=== PATIENT | male | born 1980 | race Caucasian/White ===

== ENCOUNTER → 2017-05-25 10:20 | Outpatient (CLI) | payer MEDICAID, SELFPAY ==
[2017-05-25 10:25] LABS: Bacteria 0 SEEN /hpf (None Seen); Mucous, Urine 0 SEEN /hpf (<or=2+); Red Blood Cells-Urine 0 SEEN /hpf (0-5); White Blood Cells 0 SEEN /hpf (0-5)
[2017-05-25 12:12] LABS: Color, Urine Yellow (Yellow); Glucose, Dipstick Normal (Normal); Ketone-Dipstick Negative (Negative); Leukocyte Esterase-Dipstick Negative /ul (Negative); Nitrite-Dipstick Negative (Negative); Occult Blood-Urine Negative /ul (Negative); Protein-Dipstick Negative (Negative); Urine Bilirubin Dipstick Negative (Negative); Urine Clarity Sl. Cloudy (Clear); Urine Urobilinogen Normal (Normal)
[2017-05-25 12:22] LABS: Squamous Epithelial Cells - UA 0-5 SEEN /hpf (0-5)
[2017-05-25 12:58] LABS: Absolute Neutrophil Count 3.4 X10^3/uL (2.0-7.7); Basophil# 0.03 X10^3/uL; Basophil% 0.4 % (0-1); Eosinophil# 0.14 X10^3/uL; Eosinophils% 2.1 % (0-5); Hematocrit 47.4 % (40-54); Hemoglobin 15.6 g/dl (13.0-16.5); Lymphocyte % 40.3 % (19-41); Mean Corp Hgb Conc 32.9 g/gl (32-36); Mean Corpuscular Hgb 30.6 pg (27.0-32.0); Mean Corpuscular Volume 93.1 fL (80-94); Mean Platelet Vol. 10.5 fl (6.2-12.0); Monocyte# 0.39 X10^3/uL; Monocyte% 5.8 % (0-10); Neutrophil # 3.42 X10^3/uL (2.7-7.7); Neutrophil % 51.1 % (47-70); Platelet Count 264 K/mm3 (150-450); RBC Distribution Width CV 13.7 % (11.6-14.6); RBC Distribution Width SD 46.5 fl (35.1-43.9); Red Blood Count 5.09 M/mm3 (4.6-6.2); White Blood Count 6.7 K/mm3 (4.4-11.0)
[2017-05-25 13:02] LABS: POSITIVE COUNT NO; POSITIVE DIFFERENTIAL NO; POSITIVE MORPHOLOGY NO
[2017-05-25 13:05] LABS: ALB/GLOB Ratio 1.1 RATIO (0.9-2.4); AST(SGOT) 25 U/L (15-37); Alanine Aminotransfer ALT/SGPT 85 U/L (16-61); Albumin, Serum 3.8 g/dL (3.2-5.0); Alkaline Phosphatase 79 U/L (45-117); Anion Gap 7 (5-15); BUN 18 mg/dL (7-18); BUN/Creat Ratio 17.5 RATIO (10-20); Calcium,Total 8.5 mg/dL (8.5-10.1); Chloride 108 mmol/L (98-107); Cholesterol 163 mg/dL (200); Creatinine, Serum 1.03 mg/dL (0.70-1.30); EST Glomerular Filtration Rate 86 mL/min (>60); Est Glom Filt Rate - Afr Amer 104 mL/min (>60); Globulin 3.6 g/dL (2.2-4.2); Glucose 108 mg/dL (74-106); High Density Lipoprotein 54 mg/dL; Protein, Total 7.4 g/dL (6.4-8.2); Sodium Level 139 mmol/L (136-145); Thyroid Stim Hormone (TSH) 1.45 uIU/mL (0.358-3.74); Triglycerides 78 mg/dL; Very Low Density Lipoprotein 16 mg/dL (5-40)
== END ==
PROVIDERS: Family Provider Family Medicine; PCP Family Medicine; Visit Provider Family Medicine
DX: Z00.00 Encounter for general adult medical examination without abnormal findings (principal); E66.9 Obesity, unspecified
CPT/HCPCS: 36415; 80053; 80061; 81001; 84443; 85025

== ENCOUNTER → 2017-06-01 09:52 | Outpatient (CLI) | payer MEDICAID, SELFPAY ==
[2017-06-01 12:42] LABS: ALB/GLOB Ratio 0.9 RATIO (0.9-2.4); AST(SGOT) 26 U/L (15-37); Alanine Aminotransfer ALT/SGPT 92 U/L (16-61); Albumin, Serum 3.7 g/dL (3.2-5.0); Alkaline Phosphatase 77 U/L (45-117); Anion Gap 7 (5-15); BUN 14 mg/dL (7-18); BUN/Creat Ratio 15.3 RATIO (10-20); Bilirubin, Direct 0.17 mg/dL (0.00-0.30); Calcium,Total 8.8 mg/dL (8.5-10.1); Chloride 106 mmol/L (98-107); Creatinine, Serum 0.92 mg/dL (0.70-1.30); EST Glomerular Filtration Rate 98 mL/min (>60); Est Glom Filt Rate - Afr Amer 119 mL/min (>60); Glucose 77 mg/dL (74-106); Potassium 3.6 mmol/L (3.5-5.1); Protein, Total 7.7 g/dL (6.4-8.2); Sodium Level 140 mmol/L (136-145)
[2017-06-02 08:36] LABS: HEPATITIS B SURFACE AG Negative (Negative); Hep B Surface Antibodies Non Reactive (.); Hep C Antibodies 0.1 s/co ratio (0.0-0.9)
== END ==
PROVIDERS: Family Provider Family Medicine; PCP Family Medicine; Visit Provider Family Medicine
DX: R74.8 Abnormal levels of other serum enzymes (principal)
CPT/HCPCS: 36415; 80053; 82248; 86706; 86803; 87340

== ENCOUNTER → 2017-08-10 15:26 | Outpatient (CLI) | payer MEDICAID, SELFPAY ==
[2017-08-10 17:50] LABS: AST(SGOT) 35 U/L (15-37); Alanine Aminotransfer ALT/SGPT 110 U/L (16-61); Albumin, Serum 3.8 g/dL (3.2-5.0); Alkaline Phosphatase 90 U/L (45-117); Bilirubin, Direct 0.15 mg/dL (0.00-0.30); Globulin 4.4 g/dL (2.2-4.2); Protein, Total 8.2 g/dL (6.4-8.2)
== END ==
PROVIDERS: Family Provider Family Medicine; PCP Family Medicine; Visit Provider Family Medicine
DX: R74.8 Abnormal levels of other serum enzymes (principal)
CPT/HCPCS: 36415; 80076

== ENCOUNTER → 2017-11-13 16:19 | Outpatient (CLI) | payer MEDICAID, SELFPAY ==
[2017-11-13 18:10] LABS: AST(SGOT) 38 U/L (15-37); Alanine Aminotransfer ALT/SGPT 95 U/L (16-61); Albumin, Serum 3.7 g/dL (3.2-5.0); Alkaline Phosphatase 84 U/L (45-117); Bilirubin, Direct 0.21 mg/dL (0.00-0.30); Globulin 4.2 g/dL (2.2-4.2); Protein, Total 7.9 g/dL (6.4-8.2)
== END ==
PROVIDERS: Family Provider Family Medicine; PCP Family Medicine; Visit Provider Family Medicine
DX: R74.8 Abnormal levels of other serum enzymes (principal)
CPT/HCPCS: 36415; 80076

== ENCOUNTER → 2018-03-19 15:32 | Outpatient (CLI) | payer MEDICAID, SELFPAY ==
[2018-03-19 18:12] LABS: AST(SGOT) 37 U/L (15-37); Alanine Aminotransfer ALT/SGPT 105 U/L (16-61); Albumin, Serum 3.8 g/dL (3.2-5.0); Alkaline Phosphatase 84 U/L (45-117); Anion Gap 10 (5-15); BUN 12 mg/dL (7-18); BUN/Creat Ratio 11.4 RATIO (10-20); Calcium,Total 9.1 mg/dL (8.5-10.1); Chloride 105 mmol/L (98-107); Creatinine, Serum 1.05 mg/dL (0.70-1.30); EST Glomerular Filtration Rate 83 mL/min (>60); Est Glom Filt Rate - Afr Amer 101 mL/min (>60); Globulin 3.8 g/dL (2.2-4.2); Glucose 75 mg/dL (74-106); Potassium 3.9 mmol/L (3.5-5.1); Protein, Total 7.6 g/dL (6.4-8.2); Sodium Level 140 mmol/L (136-145)
== END ==
PROVIDERS: Family Provider Family Medicine; PCP Family Medicine; Visit Provider Family Medicine
DX: R74.8 Abnormal levels of other serum enzymes (principal)
CPT/HCPCS: 36415; 80053

== ENCOUNTER → 2018-03-28 09:44 | Outpatient (CLI) | payer MEDICAID, SELFPAY ==
--- NOTE | 2018-03-28 09:51 | US_ITS ---
STUDY: ABDOMINAL ULTRASOUND - RIGHT UPPER QUADRANT REASON FOR VISIT: Male, 37 years old. Elevated liver function tests TECHNIQUE: Ultrasound evaluation of the right upper quadrant was performed with real-time and static junior-scale imaging. TECHNICAL QUALITY: Adequate. COMPARISON: None. FINDINGS: Liver: The liver measures 18.1 cm. Fatty infiltration of the liver. The bile ducts are within normal limits. There is hepatic color flow. The direction of portal flow is hepatopetal. There is no demonstrated mass lesion. Gallbladder: Normal distended gallbladder. The gallbladder wall measures 4 mm. There is a negative sonographic Torres's sign. There is no pericholecystic fluid. There is sludge within the gallbladder lumen and a large 2.1 cm gallstone. Common Bile Duct (C.B.D.): The common bile duct measures mm. Pancreas: Normal size of the head, body and tail of the pancreas. There is normal echogenicity of the pancreas. There is no demonstrated pancreatic mass or cyst. Right Kidney: Normal size of the right kidney. The right kidney measures 12.3 x 5.7 x 6.2 cm. Normal renal cortex. The right cortex measures 2.3 cm. There is no demonstrated renal mass or cyst. There is no right hydronephrosis. US/Liver IMPRESSION: A large 2.1 cm gallstone and evidence of sludge within the gallbladder lumen. Fatty infiltration of the liver Electronically Signed: Venu Jesus MD at 2:53 EST Tel , Service support ,
--- OUTSIDE RECORDS SUMMARY | 2018-06-01 23:31 | XMS RPT_ITS ---
:1980 Author Organization [facility] Care Team Providers Name Role Phone DARCY VAUGHN JR Attending Unavailable SONIA FARR (RESPITE WORKER) Referring Unavailable SONIA FARR (RESPITE WORKER) Attending Unavailable Giovanni Mcarthur Attending Unavailable Giovanni Mcarthur Primary Care Unavailable Giovanni Mcarthur Attending Unavailable Giovanni Mcarthur Referring Unavailable Giovanni Mcarthur Primary Care Unavailable Giovanni Mcarthur Attending Unavailable Giovanni Mcarthur Primary Care Unavailable Giovanni Mcarthur Attending Unavailable Giovanni Mcarthur Primary Care Unavailable Giovanni Mcarthur Attending Unavailable Giovanni Mcarthur Primary Care Unavailable Giovanni Mcarthur Attending Unavailable Giovanni Mcarthur Primary Care Unavailable PROBLEMS PROBLEMS No Problem Records FoundPROCEDURES PROCEDURES No Procedure Records FoundRESULTS RESULTS LIVER Observed: 03/28/2018 Status: F Source: [place] 9:51 AM [facility] REPOSITORY [facility] Imaging Services [address] [place] [address] Liver MR#: [id number] Acct: [id number] Name: JORDAN JIMÉNEZ Rep #: [id number] : 1980 M 37 From: Venu Jesus MD PCP: Giovanni Mcarthur MD Status: REG CLI Study: Liver Date of Exam: 03/28/18 Exam# [id number] Ordering Dr: Giovanni Mcarthur MD STUDY: ABDOMINAL ULTRASOUND - RIGHT UPPER QUADRANT REASON FOR VISIT: Male, 37 years old. Elevated liver function tests TECHNIQUE: Ultrasound evaluation of the right upper quadrant was performed with real-time and static junior-scale imaging. TECHNICAL QUALITY: Adequate. COMPARISON: None. FINDINGS: Liver: The liver measures 18.1 cm. Fatty infiltration of the liver. The bile ducts are within normal limits. There is hepatic color flow. The direction of portal flow is hepatopetal. There is no demonstrated mass lesion. Gallbladder: Normal distended gallbladder. The gallbladder wall measures 4 mm. There is a negative sonographic Torres's sign. There is no pericholecystic fluid. There is sludge within the gallbladder lumen and a large 2.1 cm gallstone. Common Bile Duct (C.B.D.): The common bile duct measures mm. Pancreas: Normal size of the head, body and tail of the pancreas. There is normal echogenicity of the pancreas. There is no demonstrated pancreatic mass or cyst. Right Kidney: Normal size of the right kidney. The right kidney measures 12.3 x 5.7 x 6.2 cm. Normal renal cortex. The right cortex measures 2.3 cm. There is no demonstrated renal mass or cyst. There is no right hydronephrosis. US/Liver IMPRESSION: A large 2.1 cm gallstone and evidence of sludge within the gallbladder lumen. Fatty infiltration of the liver Electronically Signed: Venu Jesus MD at 2:53 EST Tel , Service support , CC: Giovanni Mcarthur MD Machine Bobbin Winder: Signed COMPREHENSIVE METABOLIC Collected: 03/19/2018 Status: F Source: [place] 3:33 PM [facility] REPOSITORY TYPE CODE TESTS RESULT OUT OF RANGE REFERENCE UNITS LAB L501.0100 74-106 mg/dL Normal GLU 75 Result Comment: Please note revised GLUCOSE reference range effective 2017. LAB L501.1000 7-18 mg/dL Normal BUN 12 LAB L501.1100 0.70-1.30 mg/dL Normal CREAT,SERUM 1.05 Result Comment: The validity of the calculated GFR AND GFRAA in patients over 70 years has not been determined. Clinical correlation is essential. LAB L501.1110 >60 mL/min Normal EST GFR 83 Result Comment: Non- GFR Calc LAB L501.1115 >60 mL/min Normal EST GFR - AA 101 Result Comment: GFR Calc LAB L501.1300 10-20 RATIO Normal BUN/CRE 11.4 LAB L501.1500 6.4-8.2 g/dL T Normal PROT 7.6 LAB L501.1800 3.2-5.0 g/dL Normal ALB 3.8 LAB L501.1950 2.2-4.2 g/dL Normal GLOB 3.8 LAB L501.2000 0.9-2.4 RATIO Normal A/G 1.0 LAB L501.2200 8.5-10.1 mg/dL CA Normal 9.1 LAB L501.4100 15-37 U/L Normal AST 37 LAB L501.4305 45-117 U/L Normal ALK P 84 LAB L501.4405 16-61 U/L High ALT 105 LAB L501.4600 0.20-1.00 mg/dL T Normal BILI 0.90 LAB L501.5300 136-145 mmol/L NA Normal 140 LAB L501.5600 3.5-5.1 mmol/L K Normal 3.9 LAB L501.5900 98-107 mmol/L CL Normal 105 LAB L501.6100 21.0-32.0 mmol/L Normal CO2 25.0 LAB L501.6200 5-15 Normal GAP 10 Performed By: #### L500.4050 #### [facility] [address] [place], [place], [id number] LIVER PROFILE Collected: 11/13/2017 Status: F Source: [place] 4:22 PM [facility] REPOSITORY TYPE CODE TESTS RESULT OUT OF RANGE REFERENCE UNITS LAB L501.1500 6.4-8.2 g/dL Normal T PROT 7.9 LAB L501.1800 3.2-5.0 g/dL Normal ALB 3.7 LAB L501.1950 2.2-4.2 g/dL Normal GLOB 4.2 LAB L501.4100 15-37 U/L High AST 38 LAB L501.4305 45-117 U/L Normal ALK P 84 LAB L501.4405 16-61 U/L High ALT 95 LAB L501.4600 0.20-1.00 mg/dL Normal T BILI 0.90 LAB L501.4700 0.00-0.30 mg/dL Normal D BILI 0.21 Performed By: #### L500.3400 #### [facility] [address] [place] [address], [id number] LIVER PROFILE Collected: 08/10/2017 Status: F Source: [place] 3:27 PM [facility] REPOSITORY Order Comment: Order Date: 08/10/17 Order Info: 0788-1 - LIVER TYPE CODE TESTS RESULT OUT OF RANGE REFERENCE UNITS LAB L501.1500 6.4-8.2 g/dL Normal T PROT 8.2 LAB L501.1800 3.2-5.0 g/dL Normal ALB 3.8 LAB L501.1950 2.2-4.2 g/dL High GLOB 4.4 LAB L501.4100 15-37 U/L Normal AST 35 LAB L501.4305 45-117 U/L Normal ALK P 90 LAB L501.4405 16-61 U/L High ALT 110 LAB L501.4600 0.20-1.00 mg/dL Normal T BILI 0.70 LAB L501.4700 0.00-0.30 mg/dL Normal D BILI 0.15 Performed By: #### L500.3400 #### [facility] [address] [place], [address] SURGICAL PATHOLOGY Observed: 07/31/2017 Status: F Source: [place] 10:27 AM [facility] REPOSITORY Specimen originated from [facility] Specimen #: [id number] Submitting Physician: DARCY VAUGHN FINAL DIAGNOSIS 1. Right vas deferens, segmental excision (A) - Complete cross section of unremarkable vas deferens. 2. Left vas deferens, segmental excision (B) - Complete cross section of unremarkable vas deferns. JUAN/josh 08/02/2017 Pascale Covarrubias M.D., Ph.D. (Electronic Signature) SPECIMEN SUBMITTED A: RIGHT VAS DEFERENS B: LEFT VAS DEFERENS CLINICAL DATA ENCOUNTER FOR STERILIZATION GROSS DESCRIPTION A. Received in formalin labeled as right vas deferens a segment of myles cylindrical tissue measuring 1.0 x 0.3 x 0.2 cm. A pinpoint lumen is grossly visualized. The entire specimen is submitted intact in cassette A1. B. Received in formalin labeled as left vas deferens a segment of pink cylindrical tissue measuring 1.2 x 0.3 x 0.3 cm. A lumen is grossly visualized. The entire specimen is submitted intact in cassette B1. NAOMI/enmanuel 07/31/2017 Gross examination performed at [facility], [address] [place] [id number] Date of Report: 08/02/2017 Date of Procedure: 07/31/2017 Date of Receipt: 07/31/2017 Submitted by: DARCY VAUGHN [facility] Diagnostic interpretation performed at [facility], [facility] [address]. PROCEDURE Observed: 07/31/2017 Status: COMPLETED Source: [place] 10:17 AM [facility] REPOSITORY HNO ID: [id number] Author: Darcy Vaughn Jr. Service: (none) Author Type: Physician Type: Procedures Filed: 07/31/2017 10:17 AM Note Text: VASECTOMY PROCEDURE NOTE: Jordan Jiménez is a 36 year old male who presents with sterilization for vasectomy Pt ID verified with patient: Yes Fire risk assessment done Procedure verified with patient: Yes Procedure confirmed with physician and arch support maker: Yes Sign In History and Physical Exam reviewed and is unchanged. . Informed Consent Discussed: Yes. Risks, benefits, alternatives and personnel discussed with patient who consents to proceed. Sign in Communication: Completed Time Out: Team Confirms the Correct Patient, Correct Procedure; Vasectomy, Correct Site and Site Marking, Correct Position (if applicable). Fire Safety Check List Reviewed: Yes Affirmation of Time Out: Yes Sign Out: Sign Out Discussion: Completed Physician: Darcy Vaughn Jr, MD Pre procedure dx: sterilization Post procedure dx: sterilization The benefits, risks, alternatives of the vasectomy procedure and personnel were discussed with the patient. The verbal consent was obtained and the patient agrees to proceed. Procedure: The patient was placed on the procedure table in the supine position and prepped and draped in the usual sterile fashion. 1% lidocaine was used to anesthetize both sides of the scrotum. No scalpel instrument was used to make small incisions. Vas deferens brought out of wound on either side with vas clamp. Section of each vas cut out. Electrocautery use to burn each cut end. Suture used to tie each cut end. Tissue interposition suture placed. Hemostasis achieved. Vas end placed back in the scrotum. Cleanly dressed. Patient was given standard post-procedure instructions. Assessment Sterilization Plan Specimen drop off 3 months Darcy Vaughn Jr, MD CNOV Observed: 07/31/2017 Status: COMPLETED Source: [place] 9:15 AM [facility] REPOSITORY Office Visit (UROLMD) JORDAN JIMÉNEZ ([id number]) 1980 M Date Time Provider Department 07/31/17 9:15 AM DARCY VAUGHN JR During your visit today, we recorded the following information about you: Pulse Blood pressure Weight Height 60/minute 136/79 108.4 kg 1.829 m Patricia Gates Wi 07/31/2017 8:56 AM Signed Patient presents with: Vasectomy-1 Jessica Buchanan RN 07/31/2017 9:52 AM Signed HOME GOING/DISCHARGE INSTRUCTIONS FOR VASECTOMY PATIENTS Please call the following numbers with any questions or concerns: [facility]: #[phone], and also #[phone] [facility] patients: [phone] M-F 8am-5pm, after hours [phone] ACTIVITIES Avoid strenuous physical exercise and heavy lifting for 10 days (as in bearing down, squatting or heavy weight lifting) NO bouncing, bumping or jarring NO contact sports, no exercising, no golf, no vacations/trips NO swimming, bathing or engaging in sexual activity NO going out to dinner or shopping Avoid lifting children or pets for 7-[address] them on your lap Rest with your legs elevated in a reclining chair Avoid sexual stimulation for ten days. After this time, you may return to sexual activity. A METHOD OF CONTROL should be used until your semen analysis showed negative results for sperm x 2. It is normal to notice blood or a brown color in the semen during the first few weeks after the procedure. You may go back to work in 2-3 days PRECAUTIONS Follow the usual precautions against until the results of the semen analysis are known. If sperm are detected, it may be necessary to continue precautions until another sample is submitted at a later date. You will need to come back for Follow up appointment in the time advised by your Provider with a semen specimen in the cup provided. Make sure to continue precautions until negative specimens by provider. DIET Resume your previous diet MEDICATIONS Use Acetaminophen for mild pain or discomfort Avoid Aspirin or Aspirin-containing products for 5 days WOUND CARE Apply ice packs to the scrotal area over the underwear every 8 hours for the first 1-2 days for not more than 30 minutes at a time. Use a jock strap (scrotal support) for 10 days. A small amount of oozing of blood, tenderness, and mild swelling are expected and should subside in a few days. If a small amount of bleeding occurs apply pressure to the area with a sterile gauze pad for 10 minutes. Do not apply ointments or creams. A small black dot in the scrotum or penis is normal and may subside in a few days. You may shower but do not rub the wound area or apply direct water stream to the scrotum. No soaking in a hot tub, bathtub, or swimming pool for 10 days. Dry the scrotum by blotting with a towel. DO NOT RUB. All stitches will dissolve by themselves; they do not need to be removed. WHEN TO CALL THE DOCTOR If severe pain, or large scrotal swelling or bleeding occur, excessive pain/swelling, purulent discharge from the incision or enlarging lump in the scrotum call the office Magda([phone] or [phone]) Lis ([phone]) or go the hospital emergency room Darcy Vaughn Jr, MD 07/31/2017 10:17 AM Signed VASECTOMY PROCEDURE NOTE: Jordan Jiménez is a 36 year old male who presents with sterilization for vasectomy Pt ID verified with patient: Yes Fire risk assessment done Procedure verified with patient: Yes Procedure confirmed with physician and arch support maker: Yes Sign In History and Physical Exam reviewed and is unchanged. . Informed Consent Discussed: Yes. Risks, benefits, alternatives and personnel discussed with patient who consents to proceed. Sign in Communication: Completed Time Out: Team Confirms the Correct Patient, Correct Procedure; Vasectomy, Correct Site and Site Marking, Correct Position (if applicable). Fire Safety Check List Reviewed: Yes Affirmation of Time Out: Yes Sign Out: Sign Out Discussion: Completed Physician: Darcy Vaughn Jr, MD Pre procedure dx: sterilization Post procedure dx: sterilization The benefits, risks, alternatives of the vasectomy procedure and personnel were discussed with the patient. The verbal consent was obtained and the patient agrees to proceed. Procedure: The patient was placed on the procedure table in the supine position and prepped and draped in the usual sterile fashion. 1% lidocaine was used to anesthetize both sides of the scrotum. No scalpel instrument was used to make small incisions. Vas deferens brought out of wound on either side with vas clamp. Section of each vas cut out. Electrocautery use to burn each cut end. Suture used to tie each cut end. Tissue interposition suture placed. Hemostasis achieved. Vas end placed back in the scrotum. Cleanly dressed. Patient was given standard post-procedure instructions. Assessment Sterilization Plan Specimen drop off 3 months MD Jessica Mata Jr, RN 07/31/2017 10:42 AM Signed Addended by: JESSICA BUCHANAN RN on: 07/31/2017 10:42 AM Modules accepted: Orders Jessica Buchanan RN 07/31/2017 1:24 PM Signed AMBULATORY VASECTOMY PROCEDURE PREOPERATIVE/PROCEDURAL VERIFICATION: Patient verified by: Name and Date of UNIVERSAL PROTOCOL / SAFETY CHECKLIST Procedure to be performed: Bilateral Vasectomy Sign in Communication: Completed Time Out: Team Confirms the Correct Patient, Correct Procedure, Correct Site and Site Marking, Correct Position (if applicable), Prep and Dry Time (if applicable). Time: 1000 Affirmation of Time Out: YES Sign Out Discussion: Completed Medications and allergies reviewed and updated. Latex Allergy:No Last aspirin or anticoagulant taken: NA Pre-Procedure Vital Signs: BP BP 136/79 Pulse 60 Ht 182.9 cm (6') Wt 108.4 kg (239 lb) BMI 32.41 kg/m? Prep: Betadine Swabs to scrotum Local Anesthetic Given: 2% Lidocaine per Dr. Vaughn Suture: PDS Specimens: obtained: Right and Left Vas Deferens Dressings: 4X4 Gauze fluffs Post- procedure Vital Signs: B/P: 124/86 P: 62 R:20. Homegoing Prescriptions: None written and verbal post procedure instructions given and reviewed: Yes Patient verbalizes understanding: Yes Return to clinic: 3 months for Vas Specimen Drop off. Ambulated out with gait steady. Nurse: Jessica Buchanan RN 07/31/2017 1:27 PM Signed Valium give at 0917 after signing consent with Dr. Vaughn. Referring Provider: SONIA FARR ([facility]) [[id number]] Allergies As of Date: 07/31/2017 (No Known Allergies) Date Reviewed: 07/31/2017 Reviewed by: Darcy Vaughn Jr. - Fully Assessed Reason for Visit: Vasectomy-1 [118] Primary Visit Diagnosis:Encounter for sterilization [Z30.2] Order(s):SURGICAL PATHOLOGY [8533869] Order #: [id number] Problem List As Of Date: 07/31/2017 (None) Other instructions from your clinician: HOME GOING/DISCHARGE INSTRUCTIONS FOR VASECTOMY PATIENTS Please call the following numbers with any questions or concerns: [facility]: #[phone], and also #[phone] [facility] patients: [phone] M-F 8am-5pm, after hours [phone] ACTIVITIES Avoid strenuous physical exercise and heavy lifting for 10 days (as in bearing down, squatting or heavy weight lifting) NO bouncing, bumping or jarring NO contact sports, no exercising, no golf, no vacations/trips NO swimming, bathing or engaging in sexual activity NO going out to dinner or shopping Avoid lifting children or pets for 7-10 days and [address] not [address] them on your lap Rest with your legs elevated in a reclining chair Avoid sexual stimulation for ten days. After this time, you may return to sexual activity. A METHOD OF CONTROL should be used until your semen analysis showed negative results for sperm x 2. It is normal to notice blood or a brown color in the semen during the first few weeks after the procedure. You may go back to work in 2-3 days PRECAUTIONS Follow the usual precautions against until the results of the semen analysis are known. If sperm are detected, it may be necessary to continue precautions until another sample is submitted at a later date. You will need to come back for Follow up appointment in the time advised by your Provider with a semen specimen in the cup provided. Make sure to continue precautions until negative specimens by provider. DIET Resume your previous diet MEDICATIONS Use Acetaminophen for mild pain or discomfort Avoid Aspirin or Aspirin-containing products for 5 days WOUND CARE Apply ice packs to the scrotal area over the underwear every 8 hours for the first 1-2 days for not more than 30 minutes at a time. Use a jock strap (scrotal support) for 10 days. A small amount of oozing of blood, tenderness, and mild swelling are expected and should subside in a few days. If a small amount of bleeding occurs apply pressure to the area with a sterile gauze pad for 10 minutes. Do not apply ointments or creams. A small black dot in the scrotum or penis is normal and may subside in a few days. You may shower but do not rub the wound area or apply direct water stream to the scrotum. No soaking in a hot tub, bathtub, or swimming pool for 10 days. Dry the scrotum by blotting with a towel. DO NOT RUB. All stitches will dissolve by themselves; they do not need to be removed. WHEN TO CALL THE DOCTOR If severe pain, or large scrotal swelling or bleeding occur, excessive pain/swelling, purulent discharge from the incision or enlarging lump in the scrotum call the office Magda([phone] or [phone]) Lis ([phone]) or go the hospital emergency room Visit Notes: >> Patricia Gates Laury SunJuly 31, 2017 8:54 AM Status: Signed Patient presents with: Vasectomy-1 >> Jessica Buchanan RN July 31, 2017 1:21 PM Status: Signed AMBULATORY VASECTOMY PROCEDURE PREOPERATIVE/PROCEDURAL VERIFICATION: Patient verified by: Name and Date of UNIVERSAL PROTOCOL / SAFETY CHECKLIST Procedure to be performed: Bilateral Vasectomy Sign in Communication: Completed Time Out: Team Confirms the Correct Patient, Correct Procedure, Correct Site and Site Marking, Correct Position (if applicable), Prep and Dry Time (if applicable). Time: 1000 Affirmation of Time Out: YES Sign Out Discussion: Completed Medications and allergies reviewed and updated. Latex Allergy:No Last aspirin or anticoagulant taken: NA Pre-Procedure Vital Signs: BP BP 136/79 Pulse 60 Ht 182.9 cm (6') Wt 108.4 kg (239 lb) BMI 32.41 kg/m? Prep: Betadine Swabs to scrotum Local Anesthetic Given: 2% Lidocaine per Dr. Vaughn Suture: PDS Specimens: obtained: Right and Left Vas Deferens Dressings: 4X4 Gauze fluffs Post- procedure Vital Signs: B/P: 124/86 P: 62 R:20. Homegoing Prescriptions: None written and verbal post procedure instructions given and reviewed: Yes Patient verbalizes understanding: Yes Return to clinic: 3 months for Vas Specimen Drop off. Ambulated out with gait steady. Nurse: Jessica Buchanan RN >> Jessica Jimenes July 31, 2017 1:27 PM Status: Signed Valium give at 0917 after signing consent with Dr. Vaughn. Follow-up and Disposition History Recorded Letter Text Jordan Jiménez [facility]. Darcy Vaughn [address] [place] [address] July 31, 2017 Jordan Jiménez [address] [address] To Whom It May Concern, This is to certify that Jordan Jiménez is a patient under my care. Please excuse him from work on 07-31-17 through til 08-02-2017. No lifting anything over 40 pounds for at least 1 week. Sincerely, Dr. Darcy Vaughn (Electronically signed to expedite mailing) Encounter Status:Closed by DARCY VAUGHN MD on 07/31/17 PROGRESS Observed: 06/19/2017 Status: COMPLETED Source: [place] 3:27 PM [facility] [place] REPOSITORY O ID: [id number] Author: Sonia Martinez (Slide Fasteners Inspector) [place] Service: (none) Author Type: Nurse Practitioner Type: Progress Notes Filed: 06/19/2017 3:51 PM Note Text: Vasectomy (Voluntary Sterilization) Consult Chief Complaint: Here for vasectomy consult HPI: Jordan Jiménez is a 36 year old male who presents today, referred by self, for a consultation for elective bilateral vasectomy. He has voluntarily decided to have sterilization. He is . He has fathered 5 children. Patient states unequivocal desire to never father a child in the future: Yes Previous inguinal/urological operative history: No History of UTI: No He is voiding with adequate stream, denies hematuria or dysuria, denies incontinence and denies flank pain. I have reviewed the following: MEDICATIONS ALLERGIES No Known Allergies No past medical history on file. No past surgical history on file. No family history on file. Social History Substance Use Topics - Smoking status: Current Every Day Smoker Packs/day: 0.25 Types: Cigarettes - Smokeless tobacco: Never Used - Alcohol use Not on file REVIEW OF SYSTEMS PAIN ASSESSMENT: Negative for pain, no history of chronic pain, and no current treatment for a chronic pain condition. GENERAL: No weight loss, malaise or fevers. : See HPI HEMATOLOGY/LYMPHOLOGY: Negative for prolonged bleeding, bruising easily or swollen nodes. No bleeding disorders. PHYSICAL EXAMINATION: BP 125/71 Pulse 74 Ht 180.3 cm (5' 11) Wt 104.3 kg (230 lb) SpO2 97% BMI 32.08 kg/m2 GENERAL: Well appearing, alert, in no acute distress, well- hydrated, well nourished. NEURO: Awake, alert and oriented x 3. Normal gait. No involuntary motions. PSYCH: No signs of depression, anxiety, or agitation. GENITOURINARY: No scrotal lesions, cysts, or rashes. Epididymes and testes: normal size and position without masses. Urethral meatus: normal size and postion without lesions or discharge. Penis: circumcised, without plaques, lesions, masses or deformities Vas Deferens: easily palpable on left, easily palpable on right Rectal Exam: deferred No results found for: PSA, PSAPER MEDICAL DECISION MAKING: He has already watched the [facility] [employer] Vasectomy Video and the printed brochure has been given to him as written information. ? Shaving of entire scrotum and lower pubic hair are understood ? Need to avoid aspirin, NSAID's and other blood thinners 7 days before procedure. ? Need to avoid strenuous activity until recovered, ice packs emphasized. ? Aware that procedure may be stopped and re-scheduled to the OR, if deemed necessary. ? 1:2000 rate of recanalization acknowledged and accepted by patient. ? Risk of after vasectomy is approximately 1 in 2000 for men who have had post vasectomy azoospermia or rare non motile sperm ? Patient understands previously produced sperm are capable of fertility until semean analysis confirms sterility checked 8-16 weeks following the procedure. He should use alternative contraception and consider himself fully capable of paternity until we notify him that no live sperm are present. He has also been made aware that occasional delayed cases of recanalization have been reported, so there is never the absolute impossibility of paternity. He understands that if at three month semen analysis demonstrates live sperm, he must repeat this monthly until sterility is confirmed. If this does not occur, repeat vasectomy would be required. ? Patient states unequivocal desire to never father a child in the future. ? Permanence fully understood. ? Aware other options of contraception are available ? There is a < 1% risk of needing a repeat vasectomy. There are options to retrieve sperm after vasectomy, but these are not always successful. ? Postoperatively, men should refrain from ejacualtion for one week post vasectomy. This is to allow the surgical site to heal and occlusion to form ? The risk of surgical complication such as symptomatic hematoma and infection or chronic scrotal pain occurs in 1-2% of men. ? Aware of the rare risk of testicle injury ? Patient was given instructions on when to contact the office ? Patient questions answered. ASSESSMENT/PLAN: 1. 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 - VASECTOMY Sonia Farr APRN.CNP Disease Specificity: Acuity: Chronic Severity: Mild, no pain related/10 Anatomic Site: Spermatic Cord, Laterality: Bilateral Underlying Condition/Causal Agent: Primary Voluntary sterilization Associated Conditions/Manifestations: N/A CNOV Observed: 06/19/2017 Status: COMPLETED Source: [place] 3:00 PM [facility] REPOSITORY Office Visit (UROLMD) JORDAN JIMÉNEZ ([id number]) 1980 M Date Time Provider Department 06/19/17 3:00 PM SONIA FARR ([facility]) UROLMD During your visit today, we recorded the following information about you: Pulse Blood pressure Weight Height 74/minute 125/71 104.3 kg 1.803 m [facility] 06/19/2017 3:16 PM Signed Patient presents with: New Patient: Vasectomy Consult Sonia Farr APRN.CNP 06/19/2017 3:51 PM Signed Vasectomy (Voluntary Sterilization) Consult Chief Complaint: Here for vasectomy consult HPI: Jordan Jiménez is a 36 year old male who presents today, referred by self, for a consultation for elective bilateral vasectomy. He has voluntarily decided to have sterilization. He is . He has fathered 5 children. Patient states unequivocal desire to never father a child in the future: Yes Previous inguinal/urological operative history: No History of UTI: No He is voiding with adequate stream, denies hematuria or dysuria, denies incontinence and denies flank pain. I have reviewed the following: MEDICATIONS ALLERGIES No Known Allergies No past medical history on file. No past surgical history on file. No family history on file. Social History Substance Use Topics - Smoking status: Current Every Day Smoker Packs/day: 0.25 Types: Cigarettes - Smokeless tobacco: Never Used - Alcohol use Not on file REVIEW OF SYSTEMS PAIN ASSESSMENT: Negative for pain, no history of chronic pain, and no current treatment for a chronic pain condition. GENERAL: No weight loss, malaise or fevers. : See HPI HEMATOLOGY/LYMPHOLOGY: Negative for prolonged bleeding, bruising easily or swollen nodes. No bleeding disorders. PHYSICAL EXAMINATION: BP 125/71 Pulse 74 Ht 180.3 cm (5' 11ANDquot;) Wt 104.3 kg (230 lb) SpO2 97% BMI 32.08 kg/m2 GENERAL: Well appearing, alert, in no acute distress, well- hydrated, well nourished. NEURO: Awake, alert and oriented x 3. Normal gait. No involuntary motions. PSYCH: No signs of depression, anxiety, or agitation. GENITOURINARY: No scrotal lesions, cysts, or rashes. Epididymes and testes: normal size and position without masses. Urethral meatus: normal size and postion without lesions or discharge. Penis: circumcised, without plaques, lesions, masses or deformities Vas Deferens: easily palpable on left, easily palpable on right Rectal Exam: deferred No results found for: PSA, PSAPER MEDICAL DECISION MAKING: He has already watched the [facility] GUKI Vasectomy Video and the printed brochure has been given to him as written information. ? Shaving of entire scrotum and lower pubic hair are understood ? Need to avoid aspirin, NSAID's and other blood thinners 7 days before procedure. ? Need to avoid strenuous activity until recovered, ice packs emphasized. ? Aware that procedure may be stopped and re-scheduled to the OR, if deemed necessary. ? 1:2000 rate of recanalization acknowledged and accepted by patient. ? Risk of after vasectomy is approximately 1 in 2000 for men who have had post vasectomy azoospermia or rare non motile sperm ? Patient understands previously produced sperm are capable of fertility until semean analysis confirms sterility checked 8-16 weeks following the procedure. He should use alternative contraception and consider himself fully capable of paternity until we notify him that no live sperm are present. He has also been made aware that occasional delayed cases of recanalization have been reported, so there is never the absolute impossibility of paternity. He understands that if at three month semen analysis demonstrates live sperm, he must repeat this monthly until sterility is confirmed. If this does not occur, repeat vasectomy would be required. ? Patient states unequivocal desire to never father a child in the future. ? Permanence fully understood. ? Aware other options of contraception are available ? There is a ANDlt; 1% risk of needing a repeat vasectomy. There are options to retrieve sperm after vasectomy, but these are not always successful. ? Postoperatively, men should refrain from ejacualtion for one week post vasectomy. This is to allow the surgical site to heal and occlusion to form ? The risk of surgical complication such as symptomatic hematoma and infection or chronic scrotal pain occurs in 1-2% of men. ? Aware of the rare risk of testicle injury ? Patient was given instructions on when to contact the office ? Patient questions answered. ASSESSMENT/PLAN: 1. 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 ? Vasectomy is intended to be a permanent form of contraception. There are options for fertility after vasectomy, but they are not always successful and they are expensive. You should not have a vasectomy unless you and your partner are sure that you do not want to have any more children. ? Vasectomy does not produce immediate sterility. It takes about 8-16 weeks before you can be sure that you are sterile by having a microscopic examination of your semen ? Following vasectomy, another form of contraception must be used until sterility is confirmed by the finding of no sperm or at most rare non-moving sperm on a semen analysis. Your doctor will tell you when he or she thinks the post-vasectomy semen analysis (also known as PVSA) should be done. If you were not told a specific time, wait 12 weeks. ? Even after sterility is confirmed by exam of the semen , you must understand clearly that vasectomy is not 100% reliable in preventing . There is no method of contraception that is 100% certain to prevent . occurs in 1 of 2,000 couples even when semen exam after a vasectomy shows no sperm in the semen. The rare pregnancies that occur after vasectomy can occur at any time, even years later. ? A second vasectomy is occasionally necessary when the original vasectomy does not produce sterility. The chance that you will need a second vasectomy is less than 1%. ? You should not ejaculate for one week after your vasectomy ? Vasectomy does not cause any physical change in sexual performance, function, pleasure, sensation, interest, desire, satisfaction, penile erection, volume of semen or ejaculation. ? The options for fertility after vasectomy include vasectomy reversal and sperm retrieval with in vitro fertilization. These options are not always successful. Overall, about 50% of couples are able to have children with these techniques. Also, before the vasectomy, it is possible to freeze your sperm in a sperm bank. Freezing sperm is expensive, but it gives you a little insurance in case you decide after the vasectomy that you want more children. ? The complications of vasectomy which may occur within about one to two weeks after vasectomy are bleeding and infection. Bleeding usually takes the form of blood oozing from the vasectomy incision or a painful collection of blood under the skin at the vasectomy site (called a hematoma.) Active bleeding usually stops by itself; opening the scrotal skin to control bleeding at the vasectomy incision site is rarely needed. Hematomas (collections of blood) usually get absorbed by the body; occasionally hematomas need to be surgically drained. Infections are usually treated with antibiotics. Rarely an abscess due to infection will require surgical drainage. The risk of these complications is 1-2%. ? Medical journals report that about 1-2% of men develop significant chronic pain in the scrotal sac after vasectomy. This pain can last for months or years and can even be permanent. Chronic pain in the scrotum after vasectomy is usually treated with non-steroidal anti-inflammatory drugs (NSAIDS), antibiotics or injections of cortisone-like drugs or anesthetic agents. Few men have chronic pain after vasectomy that is severe enough to require additional surgery. ? There are many other permanent and non-permanent alternatives to vasectomy. You should discuss other options for contraception with your doctor to decide which method is best for you. This information sheet is intended to give you the basic information you should know before you decide to have a vasectomy. Your doctor can provide you with more detailed information if you need it. APPOINTMENT FOR SEMEN ANALYSIS ANDamp; SEMEN SAMPLE COLLECTION I. Semen Collection Semen collection and analysis is conducted by appointment only. A. To schedule an appointment, the patient must call the Andrology Center. Appointments can be scheduled at the [facility] collection site on Sunday, Sunday, and Sunday between 8:00 am - 12:00 pm. Please call [phone] (ask for extension [phone]) or call directly to one of the lines listed below. Appointment can be scheduled at [facility] on Sunday between 8:00 am - 2:00 pm. ? Andrology Center [address] [address] [place], [place] [address] ? [place] [facility] [address] [facility], [address] [place], [place] [id number] Note: The Andrology Center Technologist or Supervisor [place] will help the patient set up the appointment at either location. B. The patient will be provided with a clean, sterile plastic container by the Andrology Laboratory staff. He must not use other container because they may not be sterile and might interfere with sperm quality, causing inaccurate results. C. The patient must not use saliva or lubricants (other than those provided by the laboratory) when collecting the specimen as they may adversely affect sample quality. D. The patient must refrain from sexual intercourse, masturbation (or any other form of emission) for at least 2-3 days and no more than 7 days prior to semen testing. E. The semen sample is collected by masturbation and ejaculated directly into the specimen container. The patient is given instructions to try to collect the entire specimen into the cup since the first few drops of the ejaculate contain the highest concentration of sperm. F. The specimen container should be labeled with the patient's name, date of or medical record number, date and time of collection. G. If the sample is collected in the collection room then the technologist accepting the specimen will ask the patient for the time since last emission and whether the sample is a complete or incomplete specimen. H. The technologist will check the patient's fire truck driver's license or any other picture identification to confirm identity. I. If the specimen is collected at home, the patient should carry the sample container close to his body to maintain it near body temperature. The sample must be delivered within 60 minutes to either the [place] [facility] or the [facility]. Note: The patient must call ahead of time to schedule an appointment for semen collection whether it is being done on-site or collection at home. II. Proper Labeling of Semen Container A. The container must have the patient's name, date of , date and time of collection. If these are not present, the technologist must write this information on the cup in the patient's presence. B. The patient must bring a fire truck driver's license or other picture identification with him for the first visit. The technologist must document the identification (or that of the person dropping off the specimen and/or picking it up for insemination) by noting the person's fire truck driver's license number (or any other picture identification) along with their relationship to the patient. C. The technologist must make sure all questions are answered on the worksheet. Example: Patient name, medical record number, name of doctor, length of abstinence (or time since last emission), split or complete sample, plastic or glass container, method of collection, date and time of collection, time of receipt and partner information (if applicable). III. Reference A. Developed by the Andrology Center, [facility], 2015. Referring Provider: SELF [[id number]] Allergies As of Date: 06/19/2017 (No Known Allergies) Date Reviewed: 06/19/2017 Reviewed by: Patricia Gates Ma - Fully Assessed Reason for Visit: New Patient [[id number]] Cmt: Vasectomy Consult Primary Visit Diagnosis:Vasectomy evaluation [Z30.09] Order(s):VASECTOMY [[id number]] Order #: [id number] diazePAM (VALIUM) 5 mg tablettake 5 mg PO after you sign the informed consentDisp: 1 tabletRfl: 0 Prescriptions as of 06/19/2017 Sig: DIAZEPAM 5 MG TABLET take 5 mg PO after you sign t* Problem List As Of Date: 06/19/2017 (None) Other instructions from your clinician: If you are thinking of having a vasectomy, there are some important things you should know before the vasectomy is done. ? Vasectomy is intended to be a permanent form of contraception. There are options for fertility after vasectomy, but they are not always successful and they are expensive. You should not have a vasectomy unless you and your partner are sure that you do not want to have any more children. ? Vasectomy does not produce immediate sterility. It takes about 8-16 weeks before you can be sure that you are sterile by having a microscopic examination of your semen ? Following vasectomy, another form of contraception must be used until sterility is confirmed by the finding of no sperm or at most rare non-moving sperm on a semen analysis. Your doctor will tell you when he or she thinks the post-vasectomy semen analysis (also known as PVSA) should be done. If you were not told a specific time, wait 12 weeks. ? Even after sterility is confirmed by exam of the semen , you must understand clearly that vasectomy is not 100% reliable in preventing . There is no method of contraception that is 100% certain to prevent . occurs in 1 of 2,000 couples even when semen exam after a vasectomy shows no sperm in the semen. The rare pregnancies that occur after vasectomy can occur at any time, even years later. ? A second vasectomy is occasionally necessary when the original vasectomy does not produce sterility. The chance that you will need a second vasectomy is less than 1%. ? You should not ejaculate for one week after your vasectomy ? Vasectomy does not cause any physical change in sexual performance, function, pleasure, sensation, interest, desire, satisfaction, penile erection, volume of semen or ejaculation. ? The options for fertility after vasectomy include vasectomy reversal and sperm retrieval with in vitro fertilization. These options are not always successful. Overall, about 50% of couples are able to have children with these techniques. Also, before the vasectomy, it is possible to freeze your sperm in a sperm bank. Freezing sperm is expensive, but it gives you a little insurance in case you decide after the vasectomy that you want more children. ? The complications of vasectomy which may occur within about one to two weeks after vasectomy are bleeding and infection. Bleeding usually takes the form of blood oozing from the vasectomy incision or a painful collection of blood under the skin at the vasectomy site (called a hematoma.) Active bleeding usually stops by itself; opening the scrotal skin to control bleeding at the vasectomy incision site is rarely needed. Hematomas (collections of blood) usually get absorbed by the body; occasionally hematomas need to be surgically drained. Infections are usually treated with antibiotics. Rarely an abscess due to infection will require surgical drainage. The risk of these complications is 1-2%. ? Medical journals report that about 1-2% of men develop significant chronic pain in the scrotal sac after vasectomy. This pain can last for months or years and can even be permanent. Chronic pain in the scrotum after vasectomy is usually treated with non-steroidal anti-inflammatory drugs (NSAIDS), antibiotics or injections of cortisone- like drugs or anesthetic agents. Few men have chronic pain after vasectomy that is severe enough to require additional surgery. ? There are many other permanent and non-permanent alternatives to vasectomy. You should discuss other options for contraception with your doctor to decide which method is best for you. This information sheet is intended to give you the basic information you should know before you decide to have a vasectomy. Your doctor can provide you with more detailed information if you need it. APPOINTMENT FOR SEMEN ANALYSIS AND SEMEN SAMPLE COLLECTION I. Semen Collection Semen collection and analysis is conducted by appointment only. A. To schedule an appointment, the patient must call the Andrology Center. Appointments can be scheduled at the main distant [facility]rology Center collection site on Sunday, Sunday, and Sunday between 8:00 am - 12:00 pm. Please call [phone] (ask for extension [phone]) or call directly to one of the lines listed below. Appointment can be scheduled at [facility] on Sunday between 8:00 am - 2:00 pm. ? [facility]rology Center [address] [address] [place], [place] [address] ? [place] [facility] [address] [facility] [address], [address] [place], [place] [address] Note: The Andrology Center Technologist or Supervisor [place] will help the patient set up the appointment at either location. B. The patient will be provided with a clean, sterile plastic container by the Andrology Laboratory staff. He must not use other container because they may not be sterile and might interfere with sperm quality, causing inaccurate results. C. The patient must not use saliva or lubricants (other than those provided by the laboratory) when collecting the specimen as they may adversely affect sample quality. D. The patient must refrain from sexual intercourse, masturbation (or any other form of emission) for at least 2-3 days and no more than 7 days prior to semen testing. E. The semen sample is collected by masturbation and ejaculated directly into the specimen container. The patient is given instructions to try to collect the entire specimen into the cup since the first few drops of the ejaculate contain the highest concentration of sperm. F. The specimen container should be labeled with the patient's name, date of or medical record number, date and time of collection. G. If the sample is collected in the collection room then the technologist accepting the specimen will ask the patient for the time since last emission and whether the sample is a complete or incomplete specimen. H. The technologist will check the patient's fire truck driver's license or any other picture identification to confirm identity. I. If the specimen is collected at home, the patient should carry the sample container close to his body to maintain it near body temperature. The sample must be delivered within 60 minutes to either the [place] [facility] or the [facility]. Note: The patient must call ahead of time to schedule an appointment for semen collection whether it is being done on-site or collection at home. II. Proper Labeling of Semen Container A. The container must have the patient's name, date of , date and time of collection. If these are not present, the technologist must write this information on the cup in the patient's presence. B. The patient must bring a fire truck driver's license or other picture identification with him for the first visit. The technologist must document the identification (or that of the person dropping off the specimen and/or picking it up for insemination) by noting the person's fire truck driver's license number (or any other picture identification) along with their relationship to the patient. C. The technologist must make sure all questions are answered on the worksheet. Example: Patient name, medical record number, name of doctor, length of abstinence (or time since last emission), split or complete sample, plastic or glass container, method of collection, date and time of collection, time of receipt and partner information (if applicable). III. Reference A. Developed by the [facility]rology Center, [facility], 2015. Visit Notes: >> Patricia Gates Ma Vietkatrina Jun 19, 2017 3:13 PM Status: Signed Patient presents with: New Patient: Vasectomy Consult Prescriptions ordered this encounter Disp Refills Start End DIAZEPAM 5 MG TABLET 1 ta* 0 06/19/2017 07/06/2017 Class: Print RX Sig: take 5 mg PO after you sign the informed consent Disposition: Return in about 6 weeks (around 07/31/2017) for vasectomy with Dr. Vaughn. Follow-up and Disposition History Recorded Encounter Status:Closed by SONIA FARR CNP on 06/19/17 COMPREHENSIVE METABOLIC Collected: 06/01/2017 Status: F Source: [facility] 9:53 AM [facility] REPOSITORY Order Comment: Order Date: 05/25/17 Order Info: [id number] - CMP Order Info: [id number] - BIDTI TYPE CODE TESTS RESULT OUT OF RANGE REFERENCE UNITS LAB L501.0100 74-106 mg/dL Normal GLU 77 Result Comment: Please note revised GLUCOSE reference range effective 2017. LAB L501.1000 7-18 mg/dL Normal BUN 14 LAB L501.1100 0.70-1.30 mg/dL Normal CREAT,SERUM 0.92 Result Comment: The validity of the calculated GFR AND GFRAA in patients over 70 years has not been determined. Clinical correlation is essential. LAB L501.1110 >60 mL/min Normal EST GFR 98 Result Comment: Non- GFR Calc LAB L501.1115 >60 mL/min Normal EST GFR - AA 119 Result Comment: GFR Calc LAB L501.1300 10-20 RATIO Normal BUN/CRE 15.3 LAB L501.1500 6.4-8.2 g/dL T Normal PROT 7.7 LAB L501.1800 3.2-5.0 g/dL Normal ALB 3.7 LAB L501.1950 2.2-4.2 g/dL Normal GLOB 4.0 LAB L501.2000 0.9-2.4 RATIO Normal A/G 0.9 LAB L501.2200 8.5-10.1 mg/dL CA Normal 8.8 LAB L501.4100 15-37 U/L Normal AST 26 LAB L501.4305 45-117 U/L Normal ALK P 77 LAB L501.4405 16-61 U/L High ALT 92 Result Comment: Please note revised ALT reference range effective 2017. LAB L501.4600 0.20-1.00 mg/dL Normal T BILI 1.00 LAB L501.5300 136-145 mmol/L Normal NA 140 LAB L501.5600 3.5-5.1 mmol/L Normal K 3.6 LAB L501.5900 98-107 mmol/L Normal CL 106 LAB L501.6100 21.0-32.0 mmol/L Normal CO2 27.0 LAB L501.6200 5-15 Normal GAP 7 Performed By: #### L500.4050 #### [facility] [address] [place] [address], [address] #### L3100.0390, L3100.0528, L3100.0625 #### [facility] (refer to report for specific site) refer to report for address and phone number HEPATITIS B SURFACE Collected: 06/01/2017 Status: F Source: [place] AN[place] AG 9:53 AM [facility] REPOSITORY Order Comment: Order Date: 05/25/17 Order Info: 0433-1 - HEBSAG Order Info: 30650-0 - HEBSAB Order Info: 0363-1 - HECAB TYPE CODE TESTS RESULT OUT OF RANGE REFERENCE UNITS LAB L3100.0400 Negative Normal HB Negative SURF AG Result Comment: Performed at: - [facility] [id number] Baggage Smasher: Otoniel Contreras PhD, Phone: [phone] Performed By: #### L500.4050 #### [facility] [address] [place], [place], [address] #### L3100.0390, L3100.0528, L3100.0625 #### [facility] (refer to report for specific site) refer to report for address and phone number HEP B SURFACE Collected: 06/01/2017 Status: F Source: [place] ANTIBODIES 9:53 AM [facility] REPOSITORY Order Comment: Order Date: 05/25/17 Order Info: 0433-1 - HEBSAG Order Info: 29555-5 - HEBSAB Order Info: 0363-1 - HECAB TYPE CODE TESTS RESULT OUT OF RANGE REFERENCE UNITS LAB L3100.0528 . Normal Hep B Non Reactive Leo AB Result Comment: Non Reactive: Inconsistent with immunity, less than 10 mIU/mL Reactive: Consistent with immunity, greater than 9.9 mIU/mL Performed By: #### L500.4050 #### [facility] [address] [place], [place], [id number] #### L3100.0390, L3100.0528, L3100.0625 #### [facility] (refer to report for specific site) refer to report for address and phone number HEPATITIS C ANTIBODIES Collected: 06/01/2017 Status: F Source: [place] 9:53 AM [facility] REPOSITORY Order Comment: Order Date: 05/25/17 Order Info: 043-1 - HEBSAG Order Info: 17796-0 - HEBSAB Order Info: 0363-1 - HECAB TYPE CODE TESTS RESULT OUT OF RANGE REFERENCE UNITS LAB L3100.0650 0.0-0.9 s/co ratio Normal HEP C AB 0.1 Result Comment: Negative: < 0.8 Indeterminate: 0.8 - 0.9 Positive: > 0.9 The CDC recommends that a positive HCV antibody result be followed up with a HCV Nucleic Acid Amplification test (526749). Performed By: #### L500.4050 #### [facility] [address] [place], [place], [id number] #### L3100.0390, L3100.0528, L3100.0625 #### [facility] (refer to report for specific site) refer to report for address and phone number BILIRUBIN, DIRECT Collected: 06/01/2017 Status: F Source: [place] 9:53 AM [facility] REPOSITORY Order Comment: Order Date: 05/25/17 Order Info: 0786-1 - CMP Order Info: 25625-6 - BIDTI TYPE CODE TESTS RESULT OUT OF RANGE REFERENCE UNITS LAB L501.4700 0.00-0.30 mg/dL Normal D BILI 0.17 Performed By: #### L501.4700 #### [facility] [address] [place], [place], [address] URINALYSIS, COMPLETE Collected: 05/25/2017 Status: F Source: [place] 10:23 AM [facility] REPOSITORY Order Comment: How was Urine Obtained? CLEAN CATCH TYPE CODE TESTS RESULT OUT OF RANGE REFERENCE UNITS LAB L400.3000 Yellow COLOR Normal Yellow LAB L400.3050 Clear Normal CLARITY Sl. Cloudy LAB L400.3200 Normal mg/dl Normal GLUCOSE, UR Normal LAB L400.3300 Negative mg/dL Normal BILIRUBIN URINE Negative LAB L400.3400 Negative mg/dl Normal KETONE UR Negative LAB L400.3465 1.002-1.030 Normal SP.GR. DIPSTX 1.020 LAB L400.3550 5.0 - 8.0 pH UR Normal 6.0 LAB L400.3600 Negative mg/dl PROT Normal DIPSTX Negative LAB L400.3700 Normal mg/dl Normal UROBILI Normal LAB L400.3750 Negative Normal NITRITE UR Negative LAB L400.3780 Negative /ul Normal OCCULT BLOOD-UR Negative LAB L400.3800 Negative /ul LEUK Normal ESTERASE Negative LAB L400.4050 0-5 /hpf WBC 0 Normal SEEN LAB L400.4100 0-5 /hpf 0 Normal RBC-UA SEEN LAB L400.4150 0-5 /hpf SQUAM Normal EPI 0-5 SEEN LAB L400.4300 None Seen /hpf 0 Normal BACTERIA SEEN LAB L400.4350 <or=2+ /hpf 0 Normal MUCUS, URINE SEEN Performed By: #### L400.0001 #### [facility] [address] [place], [place], [address] CBC W/DIFF, AUTOMATED Collected: 05/25/2017 Status: F Source: [place] 10:23 AM [facility] REPOSITORY Order Comment: Order Date: 05/10/17 Order Info: 0184-1 - CBCD TYPE CODE TESTS RESULT OUT OF RANGE REFERENCE UNITS LAB L100.1000 4.4-11.0 K/mm3 Normal WBC 6.7 LAB L100.1200 4.6-6.2 M/mm3 Normal RBC 5.09 LAB L100.1300 13.0-16.5 g/dl Normal HGB 15.6 LAB L100.1400 40-54 % Normal HCT 47.4 LAB L100.1500 80-94 fL Normal MCV 93.1 LAB L100.1600 27.0-32.0 pg Normal MCH 30.6 LAB L100.1700 32-36 g/gl Normal MCHC 32.9 LAB L100.1810 11.6-14.6 % Normal RDW CV 13.7 LAB L100.1820 35.1-43.9 fl High RDW SD 46.5 LAB L100.1900 150-450 K/mm3 Normal PLT 264 LAB L100.2000 6.2-12.0 fl Normal MPV 10.5 LAB L100.2100 47-70 % Normal NEUT% 51.1 LAB L100.2200 19-41 % Normal LY% 40.3 LAB L100.2300 0-10 % Normal MONO% 5.8 LAB L100.2400 0-5 % Normal EO% 2.1 LAB L100.2500 0-1 % Normal BASO% 0.4 LAB L100.2550 0.0-0.9 % Normal IM GRAN % 0.300 Result Comment: IG% - Immature Granulocytes (promyelocytes, myelocytes and metamyelocytes) > 1% indicates that a LEFT SHIFT is Present. LAB L100.2620 2.0-7.7 X10 3/uL Normal Absolute Neut 3.4 LAB L100.2720 0.83-4.51 X10 3/ul Normal Absolute Lymph 2.70 Performed By: #### L100.0100, L500.4050, L500.4100, L501.9520 #### [facility] [address] [place], [place], [address] COMPREHENSIVE METABOLIC Collected: 05/25/2017 Status: F Source: [place] THACKER 10:23 AM [facility] REPOSITORY Order Comment: Order Date: 05/10/17 Order Info: 0786-1 - CMP Order Info: 33985-8 - LIPID Order Info: 3016-3 - TSH TYPE CODE TESTS RESULT OUT OF RANGE REFERENCE UNITS LAB L501.0100 74-106 mg/dL High GLU 108 Result Comment: Fasting Glucose result from 100 to 125 mg/dL suggests IMPAIRED HOMEOSTASIS per A.D.A. criteria. Please note revised GLUCOSE reference range effective 2017. LAB L501.1000 7-18 mg/dL Normal BUN 18 LAB L501.1100 0.70-1.30 mg/dL Normal CREAT,SERUM 1.03 Result Comment: The validity of the calculated GFR AND GFRAA in patients over 70 years has not been determined. Clinical correlation is essential. LAB L501.1110 >60 mL/min Normal EST GFR 86 Result Comment: Non- GFR Calc LAB L501.1115 >60 mL/min Normal EST GFR - AA 104 Result Comment: GFR Calc LAB L501.1300 10-20 RATIO Normal BUN/CRE 17.5 LAB L501.1500 6.4-8.2 g/dL T Normal PROT 7.4 LAB L501.1800 3.2-5.0 g/dL Normal ALB 3.8 LAB L501.1950 2.2-4.2 g/dL Normal GLOB 3.6 LAB L501.2000 0.9-2.4 RATIO Normal A/G 1.1 LAB L501.2200 8.5-10.1 mg/dL CA Normal 8.5 LAB L501.4100 15-37 U/L Normal AST 25 LAB L501.4305 45-117 U/L Normal ALK P 79 LAB L501.4405 16-61 U/L High ALT 85 Result Comment: Please note revised ALT reference range effective 2017. LAB L501.4600 0.20-1.00 mg/dL High T BILI 1.30 LAB L501.5300 136-145 mmol/L Normal NA 139 LAB L501.5600 3.5-5.1 mmol/L Normal K 4.0 LAB L501.5900 98-107 mmol/L High CL 108 LAB L501.6100 21.0-32.0 mmol/L Normal CO2 24.0 LAB L501.6200 5-15 Normal GAP 7 Performed By: #### L100.0100, L500.4050, L500.4100, L501.9520 #### [facility] [address] [place], [place], [id number] LIPID PROFILE Collected: 05/25/2017 Status: F Source: [place] 10:23 AM [facility] REPOSITORY Order Comment: Order Date: 05/10/17 Order Info: 0786-1 - CMP Order Info: [id number] - LIPID Order Info: 3016-3 - TSH TYPE CODE TESTS RESULT OUT OF RANGE REFERENCE UNITS LAB L501.4900 200 mg/dL Normal CHOL 163 Result Comment: <200 mg/dL Desirable 200-240 mg/dL Borderline >240 mg/dL High Risk LAB L501.5000 mg/dL Normal TRIG 78 Result Comment: The drugs N-Acetylcysteine and Metamizole may falsely depress this assay. Serum Triglycerides Reference Interval Normal <150 mg/dL Borderline high 150 - 199 mg/dL High 200 - 499 mg/dL Very High > or = 500 mg/dL LAB L501.6400 mg/dL Normal HDL 54 Result Comment: The drugs N-Acetylcysteine and Metamizole may falsely depress this assay. Reference Range HDL <40 mg/dL Low HDL Cholesterol HDL >or= 60 mg/dL High HDL Cholesterol LAB L501.6500 0-130 mg/dL Normal LDL 93 LAB L501.6600 5-40 mg/dL Normal VLDL 16 Performed By: #### L100.0100, L500.4050, L500.4100, L501.9520 #### [facility] [address] [place], [place], [id number] THYROID STIM HORMONE Collected: 05/25/2017 Status: F Source: [place] (TSH) 10:23 AM [facility] REPOSITORY Order Comment: Order Date: 05/10/17 Order Info: 0786-1 - CMP Order Info: 14936-0 - LIPID Order Info: 3016-3 - TSH TYPE CODE TESTS RESULT OUT OF RANGE REFERENCE UNITS LAB L501.9520 0.358-3.74 uIU/mL Normal TSH 1.45 Performed By: #### L100.0100, L500.4050, L500.4100, L501.9520 #### [facility] [place], [address] ALLERGIES ALLERGIES DATE TYPE / CODE NAME / CODE REACTION SEVERITY SOURCE Drug NO KNOWN [facility] Class/40036 ALLERGIES Main [place] 1003(SNOMED Repository CT) ENCOUNTERS ENCOUNTERS ADMIT/DISCHARGE ACCOUNT ADMITTING ENCOUNTER LOCATION SOURCE NUMBER CLASS 03/28/2018 [id number] [facility] ing:US Repository 03/19/2018 [id number] [facility] ing:PLAB Repository 11/13/2017 [id number] [facility] ing:MFPLAB Repository 08/10/2017 [id number] [facility] ing:MFPLAB Repository 07/31/2017/08/02/19 [id number] Ambulatory [address] Repository 06/19/2017/06/21/[id number] Repository 06/01/2017 [id number] [facility] ing:PLAB Repository 05/25/2017 [id number] [facility] ing:MFPLAB Repository PAYERS PAYERS ENCOUNTER GUARANTOR PAYER SUBSCRIBER SOURCE 03/28/2018 JORDAN Ballard Primary JORDAN [id number] Insurance:CARESOURCANNALISE QUILESB: [facility] [place]: [id number] [id number] Repository [address]Njw: [phone]) Date:2018-03-22 O [phone] () [address]ATTN: [place] [address]WN: 03/28/2018 Secondary NOT GIVENUNK Luis Antonio Insurance:SELF PAY [facility] Number: Effective Repository Date:2018-03-22 03/19/2018 JORDAN Ballard Primary JORDAN Agostooster [id number] Insurance:CARESOURC [facility]: [facility] Number: [id number], [place] [id number] Repository [address]Lmx: ([phone]) Date:2018-03-19P O [phone] (HP) [address]ATTN: [place] [address]XA: 03/19/2018 Secondary NOT GIVENUNK [place] Insurance:SELF PAY [facility] Number: Effective Repository Date:2018-03-19 11/13/2017 JORDAN D Primary JORDAN D [place] [id number] Insurance:CARESOURCEP BOUGHERDOB: [facility] Number: [id number], [place] [id number] Repository [address]Bfi: ([phone]) Date:2017-11-13P O [phone] (HP) [address]ATTN: [place] [address]AL: 11/13/2017 Secondary NOT GIVENUNK [place] Insurance:SELF PAY [facility] Number: Effective Repository Date:2017-11-13 08/10/2017 JORDAN D Primary JORDAN D [place] [id number] Insurance:CARESOURCEP BOUGHERDOB: [facility] Number: [id number], [place] [id number] Repository [address]Pae: [phone]) Date:2017-08-10P O [phone] (HP) [address]ATTN: [place] [address]WW: 08/10/2017 Secondary NOT GIVENUNK [place] Insurance:SELF PAY [facility] Number: Effective Repository Date:2017-08-10 06/01/2017 JORDAN D Primary JORDAN D Luis Antonio [id number] Insurance:CARESOURCEP BOUGHERDOB: [facility] Number: [id number], [place] [id number] Repository [address]Ias: ([phone]) Date:2017-06-01P O [phone] (HP) [address]ATTN: [place] [address]OQ: 06/01/2017 Secondary NOT GIVENUNK Luis Antonio Insurance:SELF PAY [facility] Number: Effective Repository Date:2017-06-01 05/25/2017 JORDAN Ballard Primary JORDAN [place] [id number] Insurance:CAREABHI QUILESB: [facility] [place] Number: [id number], [place] [id number] Repository [address]Vcr: 330) Date:2017-05-25P O [phone] () [address]ATTN: [place] [address]UO: 05/25/2017 Secondary NOT GIVENUNK [place] Insurance:SELF PAY [facility] Number: Effective Repository Date:2017-05-25
== END ==
PROVIDERS: Family Provider Family Medicine; PCP Family Medicine; Referring Provider Family Medicine; Visit Provider Family Medicine
DX: R94.5 Abnormal results of liver function studies (principal)
CPT/HCPCS: 76705

== ENCOUNTER → 2018-11-12 13:32 | Outpatient (CLI) | payer MEDICAID, SELFPAY ==
[2018-11-12 15:37] LABS: ALB/GLOB Ratio 0.8 RATIO (0.9-2.4); AST(SGOT) 28 U/L (15-37); Alanine Aminotransfer ALT/SGPT 98 U/L (16-61); Albumin, Serum 3.5 g/dL (3.2-5.0); Alkaline Phosphatase 90 U/L (45-117); Anion Gap 7 (5-15); BUN 14 mg/dL (7-18); BUN/Creat Ratio 12.6 RATIO (10-20); Calcium,Total 8.8 mg/dL (8.5-10.1); Chloride 111 mmol/L (98-107); Creatinine, Serum 1.11 mg/dL (0.70-1.30); EST Glomerular Filtration Rate 78 mL/min (>60); Est Glom Filt Rate - Afr Amer 94 mL/min (>60); Globulin 4.3 g/dL (2.2-4.2); Glucose 92 mg/dL (74-106); Potassium 3.9 mmol/L (3.5-5.1); Protein, Total 7.8 g/dL (6.4-8.2); Sodium Level 141 mmol/L (136-145)
== END ==
PROVIDERS: Family Provider Family Medicine; PCP Family Medicine; Referring Provider Family Medicine; Visit Provider Family Medicine
DX: R74.8 Abnormal levels of other serum enzymes (principal)
CPT/HCPCS: 36415; 80053

== ENCOUNTER → 2020-01-09 11:30 | Outpatient (CLI) | payer MEDICAID, SELFPAY ==
--- NOTE | 2020-01-09 11:38 | RAD_ITS ---
STUDY: X-RAY - LEFT ELBOW REASON FOR EXAM: Male, 39 years old. ELBOW PAIN AND LROM x6 MONTHS, WORSENING TECHNIQUE: 3 view(s) of the elbow. COMPARISON: None. FINDINGS: Normal visualized humerus, radius and ulna. Normal radiocapitellar and ulnotrochlear articulations. The soft tissue structures are unremarkable. RAD/Elbow min 3 Views IMPRESSION: Normal x-ray examination of the elbow. Electronically Signed: Bryson Sandoval MD at 9:15 EDT Tel , Service support ,
== END ==
PROVIDERS: PCP Family Medicine; Referring Provider Family Medicine; Visit Provider Family Medicine
DX: M25.522 Pain in left elbow (principal)
CPT/HCPCS: 73080

== ENCOUNTER 2021-03-25 16:15 | Outpatient (CLI) | payer MEDICAID, SELFPAY ==
--- NOTE | 2021-03-25 16:22 | RAD_ITS ---
STUDY: XR Knee Complete 4 Views or More 03/25/2021 6:29 PM REASON FOR EXAM: Male, 40 years old. PAIN swelling TECHNIQUE: XR Knee Complete 4 Views or More COMPARISON: None. FINDINGS: Normal visualized distal femur. Normal visualized proximal tibia and fibula. Normal proximal tibiofibular articulation. Normal medial femorotibial compartment. Normal lateral femorotibial compartment. Normal patellofemoral articulation. The soft tissue structures are unremarkable. RAD/Knee 4 or More Views IMPRESSION: There are no acute findings. Electronically Signed: Italo Guzman MD at 18:30 EST , Service support ,
== END 2021-03-25 23:59 | disposition short-term general hospital (02) ==
LOC: MFPLAB 16:18 → MTRAD 16:21
PROVIDERS: PCP Family Medicine; Referring Provider Registered Nurse; Visit Provider Registered Nurse
DX: M25.561 Pain in right knee (principal)
CPT/HCPCS: 73564

== ENCOUNTER → 2021-12-30 | Outpatient (CLI) | payer MEDICAID, SELFPAY ==
[2021-12-30 12:37] LABS: Pathologist Comment May follow
[2021-12-30 13:25] LABS: Synovial Fld Mononuclear WBC # 4.781 10^3/ul; Synovial Fld Mononuclear WBC % 13.6 %; Synovial Fld Polynuclear WBC % 86.4 %
[2021-12-30 13:37] LABS: RBC /Synovial Fluid 0.003 10^6/uL (0)
[2021-12-30 13:39] LABS: AUTO B FLUID DILUENT BKGD CT WBC <0.1 RBC <0.01 (W<.1,R<.01)
[2021-12-30 13:40] LABS: Source / Synovial Fluid LEFT ELBOW; Source- Body Fluid SYNOVIAL
[2021-12-30 13:41] LABS: Appearance /Synovial Fluid Hazy (CLEAR); Color / Synovial Fluid Yellow (Pale Yellow); Viscosity / Synovial Fluid Mod. Viscous (HIGH)
[2021-12-30 14:34] LABS: Body Fluid QC Type(s) BF4Q,BF5Q
[2021-12-30 15:09] LABS: Lymph 2 %; Monocyte /Synovial Fluid 3 %; Neutrophil 95 % (0-25)
[2022-01-02 11:35] LABS: Pathologist Review Reviewed
== END | disposition home or self-care (01) ==
PROVIDERS: PCP Family Medicine; Visit Provider Orthopaedic Surgery Sports Medicine
DX: M25.422 Effusion, left elbow (principal)
CPT/HCPCS: 82945; 84157; 87070; 87075; 87205; 89050; 89051; 89060

== ENCOUNTER → 2022-01-06 | Outpatient (CLI) | payer MEDICAID, SELFPAY ==
[2022-01-06 12:14] LABS: Erythrocyte Sedimentation Rate 22 mm/hr (0-20)
[2022-01-06 12:18] LABS: Absolute Neutrophil Count 3.3 X10^3/uL (2.0-7.7); Basophil# 0.04 X10^3/uL; Basophil% 0.6 % (0-1); Eosinophils% 3.1 % (0-5); Hematocrit 42.9 % (40-54); Hemoglobin 14.6 g/dL (13.0-16.5); Lymphocyte % 35.3 % (19-41); Mean Corpuscular Hgb 29.6 pg (27.0-32.0); Monocyte# 0.58 X10^3/uL; Monocyte% 8.9 % (0-10); NRBC Flagged by Analyzer 0 % (0-5); Neutrophil # 3.34 X10^3/uL (2.7-7.7); Neutrophil % 51.3 % (47-70); Platelet Count 275 K/mm3 (150-450); Red Blood Count 4.93 M/mm3 (4.6-6.2); White Blood Count 6.5 K/mm3 (4.4-11.0)
[2022-01-06 12:35] LABS: CRP 7.15 mg/L (0.0-3.0); Rheumatoid Factor < 10.0 IU/mL (<15)
[2022-01-08 14:07] LABS: Anti-Centromere B Ab <0.2 AI (0.0-0.9); Anti-Chromatin 0.2 AI (0.0-0.9); Anti-Jo <0.2 AI (0.0-0.9); Anti-Scleroderma-70 AB <0.2 AI (0.0-0.9); RNP Ab 0.3 AI (0.0-0.9); SJOGREN'S Anti-SS-A test 0.2 AI (0.0-0.9); SJOGREN'S Anti-SS-B test < 0.2 AI (0.0-0.9); Smith Ab <0.2 AI (0.0-0.9)
[2022-01-10 17:55] LABS: CCP IgG Antibodies 3 units (0-19)
[2022-01-10 18:32] LABS: Anti-dsDNA Ab 2 IU/mL (0-9)
== END | disposition home or self-care (01) ==
LOC: MTLAB 10:59
PROVIDERS: PCP Family Medicine; Referring Provider Orthopaedic Surgery Sports Medicine; Visit Provider Orthopaedic Surgery Sports Medicine
DX: M25.422 Effusion, left elbow (principal)
CPT/HCPCS: 36415; 85025; 85652; 86140; 86200; 86225; 86235; 86431

== ENCOUNTER → 2024-03-07 | Outpatient (CLI) | payer MEDICAID, SELFPAY ==
[2024-03-07 11:02] LABS: PSA,Total - Annual Screen 0.68 ng/mL (0.00-4.00)
== END | disposition home or self-care (01) ==
LOC: MFPLAB 08:43
PROVIDERS: PCP Family Medicine; Referring Provider Family Medicine; Visit Provider Family Medicine
DX: Z12.5 Encounter for screening for malignant neoplasm of prostate (principal)
CPT/HCPCS: 84153; 36415; G0103

== ENCOUNTER → 2025-01-09 | Outpatient (CLI) | payer BC, SELFPAY ==
[2025-01-09 15:40] LABS: AST(SGOT) 15 U/L (<=37); Alanine Aminotransfer ALT/SGPT 14 U/L (<=46); Albumin, Serum 4.3 g/dL (3.5-5.0); Alkaline Phosphatase 66 U/L (40-129); Anion Gap 9 (5-15); BUN 20 mg/dL (4-19); BUN/Creat Ratio 20.4 RATIO (10-20); Calcium,Total 9.5 mg/dL (7.6-11.0); Carbon Dioxide 25.7 mmol/L (21.0-32.0); Chloride 106 mmol/L (98-108); Cholesterol 163 mg/dL (<=200); Globulin 3.2 g/dL (2.2-4.2); Glucose 95 mg/dL (70-99); Low Density Lipoprotein Calc. 94 mg/dL; Potassium 4.4 mmol/L (3.3-5.1); Triglycerides 63 mg/dL; Very Low Density Lipoprotein 13 mg/dL (5-40); cholesterol:hdl ratio screen 2.91
== END | disposition home or self-care (01) ==
LOC: MTLAB 12:53
PROVIDERS: PCP Family Medicine
DX: E66.09 Other obesity due to excess calories (principal)
CPT/HCPCS: 36415; 80053; 80061; 83036; 84443